=== PATIENT | female | born 1960 | race African-American/Black ===

== ENCOUNTER 2024-03-28 19:35 | Emergency (ER) | payer MEDICAID ==
[~2024-03-28] VITALS: Ht 162.6 cm; Wt 60.0 kg
[~2024-03-28 19:35] MED LIST: LISI10TA26 MT; METF-873 MT; NAPR-681 MT
[2024-03-28 19:44] VITALS: O2SAT 100
[2024-03-28 20:07] VITALS: BP 208/77; PULSE 82; RESP 20; TEMP 98.4; O2SAT 100
== END 2024-03-28 20:59 | disposition home or self-care (01) ==
LOC: ER 19:35
DX: G62.9 Polyneuropathy, unspecified (principal); B35.1 Tinea unguium; E11.9 Type 2 diabetes mellitus without complications; I10 Essential (primary) hypertension; Z88.2 Allergy status to sulfonamides
CPT/HCPCS: 82962; 99281; 99282